=== PATIENT | female | born 1990 | race Caucasian/White ===

== ENCOUNTER 2016-11-29 07:20 | Emergency (ER) | payer BC ==
[2016-11-29 07:40] VITALS: RESP 16
--- NOTE | 2016-11-29 07:43 | PDOC ---
Abdomen/Flank HPI - General Chief Complaint: Abdomen Pain Stated Complaint: abd pain Date Seen by Provider: 11/29/16 Time Seen by Provider: 07:41 Source: POSITIVE: Patient Exam Limitations: POSITIVE: No limitations Nurse's Notes Reviewed & Considered: Yes - History of Present Illness Initial Comments: Patient is a 26-year-old female who presents to the emergency department for evaluation of abdominal pain. This pain started this morning. Left sided. No specific exacerbating or relieving factors. Radiates to the back. Moderate in severity. No history of similar in the past. She had mild nausea without vomiting. Denies urinary or bowel symptoms. No fevers. - Patient Home Medications Home Medications: Home Medications Albuterol Sulfate [Proventil Hfa] 2 puff INH Q4-6H PRN #1 inh 01/04/15 - Patient Allergies Allergies/Adverse Reactions: Allergies Allergy/AdvReac Type Severity Reaction Status Date / Time No Known Allergies Allergy Verified 11/29/16 07:26 Past Medical History - heen HEENT History: Denies History Cardiovascular History: Denies History Respiratory History: Asthma Gastrointestinal History: Denies History Genitourinary History: Denies History Endocrine History: Denies History Musculoskeletal History: Denies History Prosthesis or Implant: No Neurological History: Denies History Blood Disorders: Denies History Psychiatric History: Denies History Female Reproductive History: Denies History LMP: 11/12/16 Obstetrical History: Denies History Cancer History: Denies History In Past Year Been Physically Harmed or Verbally Threatened: No History of MDRO: No Tobacco Use: Never Smoker Alcohol Use: Rarely Substance Use Type: None Previous Surgical History: No Significant Family History: No pertinent family hx Past Medical History Reviewed: Reviewed - No Changes ROS - Limitations ROS Limitations: No Limitations Constitution: DENIES: Fever Cardiovascular: REPORTS: Denies Cardiac Symptoms Respiratory: REPORTS: Denies Resp Symptoms Neurological: REPORTS: Denies Neuro Symptoms Gastrointestinal: REPORTS: Abdominal Pain, Nausea. DENIES: Vomitting, Diarrhea , Constipation Endocrine: REPORTS: Denies Symptoms Musculoskeletal: REPORTS: Back Pain Genitourinary: REPORTS: Denies Symptoms Eyes: REPORTS: Denies Symptoms ENT: REPORTS: Denies Symptoms Skin: REPORTS: Denies Skin Symptoms Psychiatric: POSITIVE: Denies Psych Symptoms Abdominal/Flank Pain PE - General Appearance General Appearance: POSITIVE: Alert, Cooperative, No Acute Distress - HEENT HEENT: POSITIVE: Head Inspection Nml, Eyes Inspection Nml - Neck Neck: POSITIVE: Normal Inspection - Respiratory Respiratory: POSITIVE: No Respiratory Distress, Breath Sounds Normal - Cardiovascular Cardiovascular: POSITIVE: Regular Rate and Rhythm, Heart Sounds Normal - Abdomen Additional Abdominal Details: There is mild tenderness to palpation in the left upper quadrant without rebound or guarding. Very minimal discomfort in the left lower quadrant. Right upper and right lower quadrants nontender. Normal bowel sounds. - Back Back: POSITIVE: Normal Inspection - Skin Skin: POSITIVE: Intact, Warm - Extremities Extremity: Non-Tender: (LLE), (RLE), Normal ROM: (RLE), (LLE), Normal Inspection : (LLE), (RLE) - Neurological Neurological: POSITIVE: Affect Apporpriate - Psychological Psychiatric: POSITIVE: Affect Appropriate Abdomen Progress - Results Reviewed by me Lab Results:: Laboratory Results 11/29/16 11/29/16 Range/Units 07:30 07:40 WBC 7.16 (4.8-10.8) 10^3/uL RBC 4.74 (4.20-5.40) 10^6/uL Hgb 14.1 (12.0-16.0) g/dL Hct 41.2 (37.0-47.0) % MCV 86.9 (81-99) FL MCH 29.7 (27-31) PG MCHC 34.2 (33-37) g/dL RDW Std Deviation 39.8 (39-50) fL RDW Coeff of Sheng 12.9 (11.5-14.5) % Plt Count 227 (140-350) 10*3/uL MPV 8.6 (7.4-12.2) FL Immature Gran % (Auto) 0.3 (0-5) % Neut % (Auto) 59.1 (50-80) % Lymph % (Auto) 23.2 (10-50) % [place] % (Auto) 8.5 (5-15) % Eos % (Auto) 7.8 (0-8) % Baso % (Auto) 1.1 H (0-1) % Immature Gran # (Auto) 0.02 10*3/UL Neut # (Auto) 4.23 10*3/UL Lymph # (Auto) 1.66 10*3/uL [place] # (Auto) 0.61 (0.3-0.8) 10*3/UL Eos # (Auto) 0.56 10*3/UL Baso # (Auto) 0.08 10*3/UL WBC Morphology Comment Normal morphology (NORM) Plt Morphology Comment Normal morphology (NORM) RBC Morph Comment Normal morphology (NORM) Sodium 137 (135-145) meq/L Potassium 3.8 (3.8-5.2) meq/L Chloride 107 (98-112) meq/L Carbon Dioxide 21 L (23-33) meq/L Anion Gap 9 (5-20) BUN 16 (7-22) mg/dL Creatinine 0.8 (0.50-1.20) mg/dL Estimated GFR > 60 (>60 ml/min/1.73m(2)) BUN/Creatinine Ratio 20.00 (6-20) Glucose 95 (78-110) mg/dL Calculated Osmolality 284.0 (267-292) mOsm/kg Calcium 8.9 (8.7-10.7) mg/dL Total Bilirubin 0.8 (0.3-1.2) mg/dL AST 20 (8-39) IU/L ALT 24 (9-52) IU/L Alkaline Phosphatase 41 (38-126) IU/L Total Protein 7.0 (6.1-8.0) g/dL Albumin 4.2 (3.5-4.8) g/dL Globulin 2.8 (2.50-4.10) g/dL Albumin/Globulin Ratio 1.50 (1.3-2.0) mg/g Lipase 69 (23-300) IU/L Ur Collection Type Clean catch urine Urine Color Yellow Urine Clarity Clear (CLEAR) Urine pH 6.0 (5.0-8.5) Ur Specific [place] 1.025 (1.005-1.030) U Specif Grav (Refrac) 1.025 Urine Protein Negative (NEG) mg/dl Urine Glucose (UA) Negative (NEG) mg/dL Urine Ketones Negative (NEG) Urine Occult Blood Large (NEG) Urine Nitrate Positive H (NEG) Urine Bilirubin Negative (NEG) Urine Urobilinogen 0.2 (0.2) mg/dL Ur Leukocyte Esterase Trace (NEG) Urine RBC 25-40 (NONE) /hpf Urine WBC 15-24 (NONE) Ur Squamous Epith Cells Moderate (NONE) Ur Renal Epithelial Cell None (NONE) Urine Crystals None Urine Bacteria Moderate (NONE) Urine Casts None Urine Mucus Moderate (NONE) Urine Trichomonas None (NONE) Urine Yeast None (NONE) Urine HCG, Qual Negative - Patient's Progress MDM / ED Course: Patient is a 26-year-old female who presents to the emergency department for evaluation of abdominal pain. Vital signs are unremarkable. Examination demonstrates some tenderness to palpation in the left upper quadrant. Diagnosis includes but is not limited to urinary tract infection, pyelonephritis , renal stone, . Patient's CBC is unremarkable. Chemistry panel is also unremarkable. HCG is negative negative making related competitions unlikely. Patient's urinalysis does demonstrate WBCs along with RBCs suggestive of possible renal colic versus pyelonephritis. CT scan without contrast has been ordered to further evaluate for renal stone. Patient's treating her Toradol. Patient was signed out to Dr. Villarreal pending CT scan. Patient Care Time - Estimated PCT Patient Care Time (In Minutes): 25 Vital Signs - Recent Vital Signs Vital Signs: Vital Signs (Last 8 hours) Temp Pulse Resp BP Pulse Ox 11/29/16 07:32 97 F 88 16 135/82 100 - VS Reviewed Vital Signs Reviewed: Yes Discharge Clinical Impression: Abdominal pain Condition: Fair Care Transferred To: Dr. Villarreal
[2016-11-29] MEDS ORDERED: Sodium Chloride 0.9% 1,000 ML PRIMARY IV ONE ×2 (07:45→08:47)
[2016-11-29 07:52] LABS: BILIRUBIN,URINE NEGATIVE (NEG); CLARITY,URINE CLEAR (CLEAR); COLOR,URINE YELLOW; GLUCOSE, URINE (UA) NEGATIVE (NEG); NITRATE,URINE POSITIVE (NEG); OCCULT BLOOD,URINE LARGE (NEG); PROTEIN,URINE NEGATIVE (NEG); UROBILINOGEN,URINE 0.2 mg/dL (0.2)
[2016-11-29 07:59] LABS: BLOOD UREA NITROGEN 16 mg/dL (7-22); CALCIUM 8.9 mg/dL (8.7-10.7); EST GLOMERULAR FILTRATION > 60 (>60 ml/min/1.73m(2)); LIPASE 69 IU/L (23-300); SERUM ALBUMIN 4.2 g/dL (3.5-4.8)
[2016-11-29 08:01] LABS: BASOPHILS # (AUTO) 0.08 10*3/UL; BASOPHILS % (AUTO) 1.1 % (0-1); EOSINOPHILS # (AUTO) 0.56 10*3/UL; EOSINOPHILS % (AUTO) 7.8 % (0-8); HEMATOCRIT 41.2 % (37.0-47.0); HEMOGLOBIN 14.1 g/dL (12.0-16.0); LYMPHOCYTES # (AUTO) 1.66 10*3/uL; MEAN CORPUSCULAR HEMOGLOBIN 29.7 PG (27-31); MEAN CORPUSCULAR HGB CONC 34.2 g/dL (33-37); MEAN CORPUSCULAR VOLUME 86.9 FL (81-99); MEAN PLATELET VOLUME 8.6 FL (7.4-12.2); MONOCYTES # (AUTO) 0.61 10*3/UL (0.3-0.8); MONOCYTES % (AUTO) 8.5 % (5-15); NEUTROPHILS # (AUTO) 4.23 10*3/UL; NEUTROPHILS % (AUTO) 59.1 % (50-80); RED BLOOD COUNT 4.74 10^6/uL (4.20-5.40)
[2016-11-29 08:04] LABS: PLATELET MORPHOLOGY COMMENT NORMAL MORPHOLOGY (NORM); RBC MORPHOLOGY COMMENT NORMAL MORPHOLOGY (NORM); WBC MORPHOLOGY COMMENT NORMAL MORPHOLOGY (NORM)
[2016-11-29 08:08] LABS: URINE SPECIFIC GRAVITY - MAN 1.025
[2016-11-29 08:14] LABS: RBC,URINE 25-40 /hpf; SQUAMOUS EPITHELIAL CELL,UR MODERATE; URINE SAMPLE TYPE CLEAN CATCH URINE
[2016-11-29] MEDS ORDERED: KETOROLAC 15 MG/1 ML VIAL IVP ONE (08:14)
[2016-11-29 08:15] LABS: BACTERIA,URINE MODERATE
--- NOTE | 2016-11-29 09:51 | DI ---
HISTORY: Hematuria with abdominal pain. TECHNIQUE: Contiguous axial unenhanced images of the abdomen and pelvis were obtained from the lung bases through the ischial tuberosities. The images were then submitted for interpretation. FINDINGS: Limited sections of the lung bases demonstrate no focal pulmonary mass. The liver, spleen, pancreas, gallbladder, both kidneys, both adrenal glands demonstrate no acute abno rmality. The spleen is enlarged. There is moderate left hydronephrosis. There is mild dilatation of the left ureter. There are subcentimeter calcifications within both kidn eys reminiscent of nonobstructive renal calculi. There is a calcification measuring 2 mm on series 2 image 124 that is questionable for a distal urete sahil calculus, versus the parauterine calcification. CT KUB may be helpful. The appendix is visualized and appears grossly unremarkable. The small and large bowel loops appear grossly intact. There is no free air or free fluid. The unenhanced aorta and IVC demonstrate no acute findings. There is moderate constipation without obstruction. The visualized osseous structures demonstrate no destructive abnormality. IMPRESSION: 1. Bilateral renal calculi which appear nonobstructive and subcentimeter in size. 2. [id number] left hydronephrosis. 3. The left ureter is dilated, and there is a 2 mm calculus at the left hemipelvis questionable for a distal ureteric calculus versus a parauterine calcification.
--- NOTE | 2016-11-29 10:59 | PDOC ---
Abdomen/Flank HPI - General Chief Complaint: Abdomen Pain Stated Complaint: abd pain Date Seen by Provider: 11/29/16 Time Seen by Provider: 09:00 Source: POSITIVE: Patient, RN/MD Exam Limitations: POSITIVE: No limitations Nurse's Notes Reviewed & Considered: Yes - History of Present Illness Initial Comments: The patient is a 26 year old female. She states that she was awakened around 6: 20 AM this morning by pain in her left lower abdomen and flank. Patient was initially seen around 7:[address] Blank, who was the emergency room physician on duty at that time. He initiated the workup, and I assumed care of the patient when I came on duty at 9 AM. Patient states her last menstrual period was 12 November. She denies any history of abdominal surgery. She states she's had some nausea but no vomiting. No diarrhea. She is sexually active and does not use contraception. Patient received ketorolac by Dr. Blank shortly after arrival and she states she feels somewhat better now she denies any dysuria or hematuria. No fevers or chills. Body Location Affected: REPORTS: Abdomen Timing: REPORTS: Abrupt, Other (Patient states she was awakened by left flank and left lower quadrant pain.) Duration: 1-3 hours (Onset approximately 2-1/2 hours [employer]) Severity: Moderate Quality: REPORTS: "Pain" Abdominal Pain Onset Location: REPORTS: LLQ, Flank (Left) Abdominal Pain Radiation: REPORTS: No radiation Context: REPORTS: None Modifying Factors: improves with: Nothing Associated Symptoms: DENIES: Denies symptoms, Back pain, Bloody Emesis, Chest pain, Coffee Grounds Emesis, Chills, Diaphoresis, Fever, Fatigue, Headache, Heartburn, Loss of Appetite, Nausea, Rash, Shortness of breath, Swelling/mass in abdomen, Syncope, Testicular Pain, Vomiting, Weakness, Grossly Bloody Diarrhea, Constipation, Diarrhea, Dysuria, Incontinent Stool, Incontinent Urine , Mucous Diarrhea, Difficulty Walking, Dizziness, Light Headedness, Numbness, Other Similar Symptoms Previously: No Recent Care Received: REPORTS: Denies Any Prior Injuries Related to Current Complaint?: No - Patient Home Medications Home Medications: Home Medications Albuterol Sulfate [Proventil Hfa] 2 puff INH Q4-6H PRN #1 inh 01/04/15 - Patient Allergies Allergies/Adverse Reactions: Allergies Allergy/AdvReac Type Severity Reaction Status Date / Time No Known Allergies Allergy Verified 11/29/16 07:26 Past Medical History - heen HEENT History: Denies History Cardiovascular History: Denies History Respiratory History: Asthma Gastrointestinal History: Denies History Genitourinary History: Denies History Endocrine History: Denies History Musculoskeletal History: Denies History Prosthesis or Implant: No Neurological History: Denies History Blood Disorders: Denies History Psychiatric History: Denies History Female Reproductive History: Denies History LMP: 11/12/16 Obstetrical History: Denies History Cancer History: Denies History In Past Year Been Physically Harmed or Verbally Threatened: No History of MDRO: No Tobacco Use: Never Smoker Alcohol Use: Rarely Substance Use Type: None Previous Surgical History: No Significant Family History: No pertinent family hx Past Medical History Reviewed: Reviewed - No Changes ROS - Limitations ROS Limitations: No Limitations Constitution: REPORTS: Denies Symptoms Cardiovascular: REPORTS: Denies Cardiac Symptoms Respiratory: REPORTS: Denies Resp Symptoms Neurological: REPORTS: Denies Neuro Symptoms Gastrointestinal: REPORTS: Abdominal Pain (Left lower abdomen) Endocrine: REPORTS: Denies Symptoms Musculoskeletal: REPORTS: Denies MS Symptoms Genitourinary: REPORTS: Flank Pain (Left) Eyes: REPORTS: Denies Symptoms ENT: REPORTS: Denies Symptoms Skin: REPORTS: Denies Skin Symptoms Lympathic: REPORTS: Denies Lympathic Symptoms Immunologic: POSITIVE: Denies Symptoms Psychiatric: POSITIVE: Denies Psych Symptoms Abdominal/Flank Pain PE - General Appearance General Appearance: POSITIVE: Alert, Cooperative, No Evidence of Trauma, Mild Distress - HEENT HEENT: POSITIVE: Head Inspection Nml, Eyes Inspection Nml, Ears Inspection Nml, Nose Inspection Nml, Oral/Dental Inspect. Nml, Pharynx Inspect. Nml, PERRL, EOMI - Neck Neck: POSITIVE: Normal Inspection, No Apparent Injury - Respiratory Respiratory: POSITIVE: No Respiratory Distress, Breath Sounds Normal, Chest Non- Tender - Cardiovascular Cardiovascular: POSITIVE: Regular Rate and Rhythm, Heart Sounds Normal, Equal Pulses, Strong Pulses Peripheral Pulses: Radial (R): 2+, Radial (L): 2+ - Chest Chest: POSITIVE: Non Tender - Abdomen Abdomen: Soft: (All Quadrants), Normal Bowel Sounds: (All Quadrants), Denies Tenderness: (RUQ), (LUQ), (RLQ), No Splenomegaly: (All Quadrants), No Hepatomegaly: (All Quadrants), No Guarding: (All Quadrants), No Rebound: (All Quadrants), No Palpable Pulse: (All Quadrants), No Palpabale Mass: (All Quadrants), No Distention: (All Quadrants), No Rigidity: (All Quadrants), Tenderness Noted: (LLQ) Additional Abdominal Details: Abdominal examination shows bowel sounds to be present. Patient does have tenderness on direct palpation left lower abdomen and left flank; no masses organomegaly or rebound. - Back Back: POSITIVE: Normal Inspection - Skin Skin: POSITIVE: Intact, Normal For Race, Warm, Dry, No Rash - Extremities Extremity: Non-Tender: (All Extremities), Normal ROM: (All Extremities), Normal Inspection: (All Extremities) - Neurological Neurological: POSITIVE: Oriented X3, court recorder Normal As Tested, Motor Normal, Sensation Normal, 5, 6 - Psychological Psychiatric: POSITIVE: Affect Appropriate, Mood Appropriate Images - Complete Complete: 1 - Tenderness on palpation 2 - Some tenderness on percussion Abdomen Progress - Results Reviewed by me Xrays/CTs/US Reviewed by me: Yes Discussed with Radiologist: Yes Radiology Findings: CT scan abdomen and pelvis without contrast is read by radiologist as showing moderate left hydronephrosis and mild dilation of the left ureter. Radiologist does say there is a 2 mm calculus in the left hemipelvis questionable for a ureteral calculus versus a paraiuterine calcification. Lab Results Reviewed: Yes (nitrite positive; 15-20 white blood cells, 25-40 red blood cells on urinaly) Lab Results:: Laboratory Results 11/29/16 11/29/16 Range/Units 07:30 07:40 WBC 7.16 (4.8-10.8) 10^3/uL RBC 4.74 (4.20-5.40) 10^6/uL Hgb 14.1 (12.0-16.0) g/dL Hct 41.2 (37.0-47.0) % MCV 86.9 (81-99) FL MCH 29.7 (27-31) PG MCHC 34.2 (33-37) g/dL RDW Std Deviation 39.8 (39-50) fL RDW Coeff of Sheng 12.9 (11.5-14.5) % Plt Count 227 (140-350) 10*3/uL MPV 8.6 (7.4-12.2) FL Immature Gran % (Auto) 0.3 (0-5) % Neut % (Auto) 59.1 (50-80) % Lymph % (Auto) 23.2 (10-50) % [place] % (Auto) 8.5 (5-15) % Eos % (Auto) 7.8 (0-8) % Baso % (Auto) 1.1 H (0-1) % Immature Gran # (Auto) 0.02 10*3/UL Neut # (Auto) 4.23 10*3/UL Lymph # (Auto) 1.66 10*3/uL [place] # (Auto) 0.61 (0.3-0.8) 10*3/UL Eos # (Auto) 0.56 10*3/UL Baso # (Auto) 0.08 10*3/UL WBC Morphology Comment Normal morphology (NORM) Plt Morphology Comment Normal morphology (NORM) RBC Morph Comment Normal morphology (NORM) Sodium 137 (135-145) meq/L Potassium 3.8 (3.8-5.2) meq/L Chloride 107 (98-112) meq/L Carbon Dioxide 21 L (23-33) meq/L Anion Gap 9 (5-20) BUN 16 (7-22) mg/dL Creatinine 0.8 (0.50-1.20) mg/dL Estimated GFR > 60 (>60 ml/min/1.73m(2)) BUN/Creatinine Ratio 20.00 (6-20) Glucose 95 (78-110) mg/dL Calculated Osmolality 284.0 (267-292) mOsm/kg Calcium 8.9 (8.7-10.7) mg/dL Total Bilirubin 0.8 (0.3-1.2) mg/dL AST 20 (8-39) IU/L ALT 24 (9-52) IU/L Alkaline Phosphatase 41 (38-126) IU/L Total Protein 7.0 (6.1-8.0) g/dL Albumin 4.2 (3.5-4.8) g/dL Globulin 2.8 (2.50-4.10) g/dL Albumin/Globulin Ratio 1.50 (1.3-2.0) mg/g Lipase 69 (23-300) IU/L Ur Collection Type Clean catch urine Urine Color Yellow Urine Clarity Clear (CLEAR) Urine pH 6.0 (5.0-8.5) Ur Specific [place] 1.025 (1.005-1.030) U Specif Grav (Refrac) 1.025 Urine Protein Negative (NEG) mg/dl Urine Glucose (UA) Negative (NEG) mg/dL Urine Ketones Negative (NEG) Urine Occult Blood Large (NEG) Urine Nitrate Positive H (NEG) Urine Bilirubin Negative (NEG) Urine Urobilinogen 0.2 (0.2) mg/dL Ur Leukocyte Esterase Trace (NEG) Urine RBC 25-40 (NONE) /hpf Urine WBC 15-24 (NONE) Ur Squamous Epith Cells Moderate (NONE) Ur Renal Epithelial Cell None (NONE) Urine Crystals None Urine Bacteria Moderate (NONE) Urine Casts None Urine Mucus Moderate (NONE) Urine Trichomonas None (NONE) Urine Yeast None (NONE) Urine HCG, Qual Negative - Patient's Progress Pain Medication Addressed: POSITIVE: Yes (Ketorolac) School/Work Release Addressed: POSITIVE: Not Applicable Re-examine Time: 10:30 Re-Examine Comment: Patient still is having mild pain; in no acute distress. Status: POSITIVE: Improved, Re-Examined - Consult Consult (If Yes, Name of Consulting MD & Time Called): Yes (Dr. Carmona, urology, [facility], [id number]) Consulting MD will see pt:: POSITIVE: Recommended Transfer Counseled: POSITIVE: Patient, RE: Lab Results, RE: Radiology Results, RE: DX, RE : Need for F/U Patient Care Time - Estimated PCT Patient Care Time (In Minutes): 60 Vital Signs - Recent Vital Signs Vital Signs: Vital Signs (Last 8 hours) Temp Pulse Resp BP Pulse Ox 11/29/16 07:32 97 F 88 16 135/82 100 - VS Reviewed Vital Signs Reviewed: Yes Discharge Clinical Impression: Abdominal pain, Hydronephrosis, Urinary tract infectious disease Condition: Fair Patient Instructions Given at Discharge: Urinary Tract Infection in Women (ED) , Hydronephrosis (ED) Additional Instructions: You have an obstruction to your left kidney. This might be due to a stone, although the radiologist is not definitely identify a stone. Your laboratory evaluation is also compatible with a urinary tract infection. If the urine which is backed up behind her obstruction becomes infected, you could become seriously ill. For this reason, I [place] [facility] [facility] [place] that facility. Dr. Carmona will likely put a device known as a stent in the ureter so that the left kidney can drain. Do not eat or drink in route to the hospital. Report to the [place] [facility] [place] The admissions desk is located in the [facility]. Follow Up With: NONE,NONE [Primary Care Provider] - (Instructions as above. [place] [facility] [place] and treatment by [place]rology[place]
[2016-11-29 12:00] VITALS: TEMP 97.8
== END 2016-11-29 11:39 | disposition short-term general hospital (02) ==
LOC: ER 07:20
DX: N13.30 Unspecified hydronephrosis (principal); N39.0 Urinary tract infection, site not specified; R11.0 Nausea; R10.32 Left lower quadrant pain
CPT/HCPCS: 74176; 80053; 81001; 83690; 84703; 85025; 87077; 87088; 87186 ×2; 96361; 96374; 99285 ×2; J1885; J7030